=== PATIENT | male | born 2000 | race Two or more races ===

== ENCOUNTER 2025-01-23 18:54 | Emergency (ER) | payer OTHER ==
[~2025-01-23] VITALS: Ht 182.9 cm; Wt 136.1 kg
[2025-01-23 23:16] LABS: HEMATOCRIT 44.8 % (39.0-48.0); MEAN CORPUSCULAR HEMOGLOBIN 29.4 pg (27.00-32.0); MEAN CORPUSCULAR HGB CONC 33.4 g/dl (32.0-36.0); PLATELET COUNT 253 K/uL (150-450); RED BLOOD COUNT 5.09 M/uL (4.00-6.00); RED CELL DISTRIBUTION WIDTH 13.6 % (11.5-14.5)
[2025-01-24 00:30] LABS: PH,URINE 5.5 (5.0-8.0); URINE APPEARANCE Clear; URINE BILIRRUBIN Negative (NEGATIVE); URINE BLOOD Negative; URINE COLOR Yellow; URINE GLUCOSE Negative (NEGATIVE); URINE KETONE Negative (NEGATIVE); URINE LEUKOCYTE Negative; URINE NITRATE Negative; URINE PROTEIN Negative (NEGATIVE); URINE UROBILINOGEN 0.2 E.U./dl
[2025-01-24 00:34] LABS: URINE BACTERIA 7.3 uL (0.0-1933); URINE EPITHELIAL CELLS 1.8 uL (0.0-38.8); URINE WBC 2.9 uL (0.0-23.2)
[2025-01-24 00:44] LABS: URINE CAST 0.14 uL (0.0-1.40); URINE RBC 0.7 uL (0.0-20.8)
[2025-01-24 00:58] LABS: ALBUMIN 4.1 gm/dL (3.4-5.0); BILIRUBIN TOTAL 0.44 mg/dL (0.3-1.2); CALCIUM 9.4 mg/dL (8.5-10.1); CREATININE SERUM 1.02 mg/dL (0.70-1.30); GFR 89.73; GLOBULINA 3.7 G/DL (2.4-3.5); POTASSIUM 3.83 mEq/L (3.5-5.1); TOTAL PROTEIN 7.8 gm/dL (6.4-8.2)
[2025-01-24] MEDS ORDERED: ORPHENADRINE CITRATE 30 MG/ML AMPUL IM STA (01:23)
[2025-01-24] MEDS ORDERED: KETOROLAC TROMETHAMINE 60 MG VIAL IM STA (01:23)
[2025-01-24] MEDS ORDERED: KETOROLAC TROMETHAMINE 60 MG VIAL IM ONE (01:28)
[2025-01-24] MEDS ORDERED: ORPHENADRINE CITRATE 30 MG/ML AMPUL ONE (01:28)
== END 2025-01-24 01:36 | disposition home or self-care (01) ==
LOC: ER 18:56
PROVIDERS: Preventive Medicine Public Health & General Preventive Medicine
DX: M54.50 Low back pain, unspecified (principal)